=== PATIENT | male | born 1955 | race Caucasian/White ===

== ENCOUNTER 2022-12-23 12:47 | Emergency (ER) | payer MEDICARE ==
[~2022-12-23] VITALS: Ht 185.4 cm; Wt 84.0 kg
[2022-12-23 12:49] VITALS: BP 135/72; PULSE 110; RESP 16; TEMP 98.7
[2022-12-23 13:34] LABS: BASOPHILS % (AUTO) 0.5 % (0.0-2.0); EOSINOPHILS % (AUTO) 0.4 % (1.0-6.0); HEMATOCRIT 44.8 % (41-53); HEMOGLOBIN 15.4 g/dL (13.5-17.5); LYMPHOCYTES # (AUTO) 1.9 K/uL (1.0-4.8); LYMPHOCYTES % (AUTO) 14.6 % (22.0-44.0); MEAN CORPUSCULAR HEMOGLOBIN 30.9 pg (26.0-34.0); MEAN CORPUSCULAR HGB CONC 34.3 G/dL (31.0-37.0); MEAN CORPUSCULAR VOLUME 90 fL (80-100); MONOCYTES # (AUTO) 1.1 K/uL (0.1-1.0); MONOCYTES % (AUTO) 8.4 % (2.0-9.0); NEUTROPHILS # (AUTO) 9.8 K/uL (1.8-7.7); NEUTROPHILS % (AUTO) 76.1 % (40.0-70.0); PLATELET COUNT (AUTO) 329 K/uL (150-450); RED BLOOD CELL COUNT(AUTO) 4.97 MIL/uL (4.50-5.90); RED CELL DISTRIBUTION WIDTH 14.4 % (11.5-14.5)
[2022-12-23 13:40] LABS: ANION GAP 14 mmol/L (8-16); CALCIUM, TOTAL 9.5 mg/dL (8.8-10.5); CARBON DIOXIDE 20 mmol/L (22-29); CHLORIDE 97 mmol/L (98-107); CREATININE 1.05 mg/dL (0.60-1.30); GLOMERULAR FILTR. RATE CALC > 60 mL/min (>60); GLUCOSE,RANDOM 210 mg/dL (70-110); POTASSIUM 3.7 mmol/L (3.5-5.1); SODIUM SERUM 131 mmol/L (136-145)
[2022-12-23 13:45] LABS: ALANINE AMINOTRANSFERASE 26 U/L (12-78); ALBUMIN 3.9 g/dL (3.4-5.0); ALKALINE PHOSPHATASE 105 U/L (46-116); ASPARTATE AMINOTRANSFERASE 19 U/L (15-37); BILIRUBIN,TOTAL 0.3 mg/dL (0.1-1.0); TOTAL PROTEIN, SERUM 8.3 g/dL (6.4-8.2)
[2022-12-23] MEDS ORDERED: OLAN5TAB52 PO (14:23)
[2022-12-23] MEDS ORDERED: BENZ1TAB84 PO (14:23)
[2022-12-23] MEDS ORDERED: BENZTROPINE MESYLATE 2 MG TABLET PO ONE (14:30)
[2022-12-23] MEDS ORDERED: OLANZapine 5 MG TABLET PO ONE (14:30)
== END 2022-12-23 15:07 | disposition home or self-care (01) ==
LOC: EMS 12:49
DX: F20.0 Paranoid schizophrenia (principal); E11.65 Type 2 diabetes mellitus with hyperglycemia
CPT/HCPCS: 99284; 80053; 85025; G0480; 99283

== ENCOUNTER 2022-12-25 01:08 | Emergency (ER) | payer MEDICARE ==
[~2022-12-25] VITALS: Ht 177.8 cm; Wt 85.0 kg
[~2022-12-25 01:08] MED LIST: BENZ1TAB84 PO; OLAN5TAB52 PO
[2022-12-25 01:42] VITALS: BP 146/80; PULSE 110; RESP 17; TEMP 98.4
== END 2022-12-25 03:03 | disposition left against medical advice (07) ==
LOC: EMS 01:08
DX: Z53.21 Procedure and treatment not carried out due to patient leaving prior to being seen by health care provider (principal)
CPT/HCPCS: 99281; Z7502